=== PATIENT | female | born 2000 | race Two or more races ===

== ENCOUNTER 2022-11-13 10:20 | Outpatient (CLI) | payer OTHER | END 2022-11-13 10:30 | disposition home or self-care (01) | LOC: PPH VACUNA 10:20 | PROVIDERS: ATTEND Emergency Medicine Pediatric Emergency Medicine | DX: Z23 Encounter for immunization (principal) ==

== ENCOUNTER 2023-02-04 01:58 | Emergency (ER) | payer OTHER ==
[~2023-02-04] VITALS: Ht 157.5 cm; Wt 72.6 kg
[2023-02-04] MEDS ORDERED: OMEPRAZOLE MAGN20 MG PO (02:22)
[2023-02-04] MEDS ORDERED: LEVSIN/SL0.125 MG SL (02:22)
[2023-02-04 06:47] LABS: HEMATOCRIT 40.9 % (36.0-45.00); HEMOGLOBIN 14.4 g/dL (12.0-15.00); MEAN CELL VOLUME 82.7 fL (80.00-100.00); MEAN CORPUSCULAR HGB CONC 35.1 g/dl (32.0-36.0); PLATELET COUNT 336 K/uL (150-450); RED BLOOD COUNT 4.95 M/uL (4.00-6.00); RED CELL DISTRIBUTION WIDTH 13.2 % (11.5-14.5)
[2023-02-04 06:56] LABS: ALBUMIN 4.2 gm/dL (3.4-5.0); ALKALINE PHOSPHATASE 99 U/L (50-136); ALT/SGPT 16 U/L (12-78); AMYLASE 55 U/L (25-115); AST/SGOT 11 U/L (15-37); BILIRUBIN TOTAL 0.31 mg/dL (0.3-1.2); BILIRUBIN,CONJUGATED 0.11 mg/dL (0.0-0.2); LIPASE 34 U/L (13-75); TOTAL PROTEIN 8.4 gm/dL (6.4-8.2)
[2023-02-04 07:00] LABS: HCG QUANTITATIVE < 1 mUI/mL (1-3)
[2023-02-04 07:30] LABS: URINE APPEARANCE Cloudy; URINE BILIRRUBIN Negative (NEGATIVE); URINE COLOR Yellow; URINE GLUCOSE Negative (NEGATIVE); URINE LEUKOCYTE Trace; URINE NITRATE Negative; URINE PROTEIN Negative (NEGATIVE)
[2023-02-04 07:35] LABS: URINE BACTERIA 2667.2 uL (0.0-1933); URINE EPITHELIAL CELLS 84.2 uL (0.0-38.8); URINE RBC 24.8 uL (0.0-20.8); URINE WBC 24.7 uL (0.0-23.2)
[2023-02-04 08:01] LABS: URINE BLOOD TRACES
== END 2023-02-04 09:22 | disposition home or self-care (01) ==
LOC: ER 01:59
PROVIDERS: General Practice
DX: R10.13 Epigastric pain (principal); Z91.018 Allergy to other foods; Z91.048 Other nonmedicinal substance allergy status

== ENCOUNTER 2023-03-04 11:13 | Outpatient (CLI) | payer OTHER ==
[~2023-03-04 11:13] MED LIST: LEVSIN/SL0.125 MG SL; OMEPRAZOLE MAGN20 MG PO
== END 2023-03-04 11:14 | disposition home or self-care (01) ==
LOC: NUCLEAR 11:13
DX: G24.9 Dystonia, unspecified (principal)

== ENCOUNTER 2023-05-24 12:33 | Outpatient (CLI) | payer OTHER ==
[2023-05-24 13:09] LABS: PH,URINE 6.5 (5.0-8.0); URINE APPEARANCE Cloudy; URINE BILIRRUBIN Negative (NEGATIVE); URINE BLOOD NHT; URINE COLOR Yellow; URINE GLUCOSE Negative (NEGATIVE); URINE LEUKOCYTE Small; URINE NITRATE Negative; URINE PROTEIN Negative (NEGATIVE); URINE UROBILINOGEN 0.2 E.U./dl
[2023-05-24 13:13] LABS: URINE BACTERIA 4878.5 uL (0.0-1933); URINE RBC 31.4 uL (0.0-20.8); URINE WBC 73.2 uL (0.0-23.2)
[2023-05-24 13:21] LABS: HEMATOCRIT 39.2 % (36.0-45.00); HEMOGLOBIN 13.6 g/dL (12.0-15.00); MEAN CELL VOLUME 82.1 fL (80.00-100.00); MEAN CORPUSCULAR HEMOGLOBIN 28.4 pg (27.00-32.0); MEAN CORPUSCULAR HGB CONC 34.6 g/dl (32.0-36.0); PLATELET COUNT 334 K/uL (150-450); RED BLOOD COUNT 4.78 M/uL (4.00-6.00); RED CELL DISTRIBUTION WIDTH 13.1 % (11.5-14.5)
[2023-05-24 13:39] LABS: ALBUMIN 4.1 gm/dL (3.4-5.0); BILIRUBIN TOTAL 0.46 mg/dL (0.3-1.2); CALCIUM 9.1 mg/dL (8.5-10.1); CREATININE SERUM 0.57 mg/dL (0.55-1.02); GFR 131.44; GLOBULINA 3.9 G/DL (2.4-3.5); POTASSIUM 4.54 mEq/L (3.5-5.1)
[2023-05-24 13:49] LABS: T4 TOTAL 7.9 UG/DL (4.8-13.9); TSH 1.22 uIU/mL (0.358-3.74)
== END 2023-05-24 15:14 | disposition home or self-care (01) ==
LOC: LAB 12:33
PROVIDERS: ATTEND Emergency Medicine
DX: E87.5 Hyperkalemia (principal); E03.9 Hypothyroidism, unspecified; N39.0 Urinary tract infection, site not specified; K92.1 Melena

== ENCOUNTER 2023-11-08 15:37 | Outpatient (CLI) | payer OTHER | END 2023-11-08 15:40 | disposition home or self-care (01) | LOC: LAB 15:37 | DX: A64 Unspecified sexually transmitted disease (principal) ==

== ENCOUNTER 2023-11-29 10:40 | Outpatient (CLI) | payer OTHER | END 2023-11-29 10:50 | disposition home or self-care (01) | LOC: SONOGRAMA 10:40 | PROVIDERS: ATTEND Radiology Diagnostic Radiology | DX: R10.9 Unspecified abdominal pain (principal) ==

== ENCOUNTER 2023-12-10 02:00 | Outpatient (CLI) | payer OTHER | END 2023-12-10 03:00 | disposition home or self-care (01) | LOC: PPH VACUNA 02:00 | PROVIDERS: ATTEND Emergency Medicine Pediatric Emergency Medicine | DX: Z23 Encounter for immunization (principal) ==

== ENCOUNTER 2024-02-07 14:01 | Emergency (ER) | payer OTHER ==
[~2024-02-07] VITALS: Ht 175.3 cm; Wt 74.8 kg
[2024-02-07] MEDS ORDERED: BUTALB/ACETAMINOPHEN/CAFFEINE 1 TAB TABLET PO ONE (15:01)
[2024-02-07] MEDS ORDERED: FAMOTIDINE/PF 20 MG/2 ML VIAL ONE (15:02)
[2024-02-07 15:45] LABS: HEMATOCRIT 40.9 % (36.0-45.00); MEAN CELL VOLUME 83.5 fL (80.00-100.00); MEAN CORPUSCULAR HEMOGLOBIN 28.5 pg (27.00-32.0); MEAN CORPUSCULAR HGB CONC 34.1 g/dl (32.0-36.0); PLATELET COUNT 328 K/uL (150-450); RED CELL DISTRIBUTION WIDTH 13.2 % (11.5-14.5)
== END 2024-02-07 17:38 | disposition home or self-care (01) ==
LOC: ER 14:01
PROVIDERS: General Practice
DX: R51.9 Headache, unspecified (principal); Z20.822 Contact with and (suspected) exposure to COVID-19; Z91.040 Latex allergy status; Z91.018 Allergy to other foods

== ENCOUNTER 2024-04-28 14:04 | Outpatient (CLI) | payer OTHER | END 2024-04-28 14:11 | disposition home or self-care (01) | LOC: SONOGRAMA 14:04 | PROVIDERS: ATTEND Obstetrics & Gynecology Maternal & Fetal Medicine | DX: R10.2 Pelvic and perineal pain (principal) ==

== ENCOUNTER 2024-08-30 09:19 | Outpatient (CLI) | payer OTHER ==
[2024-08-30 12:18] LABS: BASO % 1.2 % (0.1-1.2); EOS # 0.14 (0.04-0.54); EOS % 2.1 % (0.7-7.0); LYMPH # 1.71 (1.18-3.74); LYMPH % 25.1 % (19.3-53.1); MEAN PLATELET VOLUME 11.40 fl (9.4-12.4); MONO # 0.43 (0.24-0.82); MONO % 6.3 % (4.7-12.5); NEUT # 4.43 (1.56-6.13); NEUT % 65.2 % (34.0-71.1); RED CELL DISTRIBUTION WIDTH 12.3 % (11.6-14.4)
[2024-08-30 12:27] LABS: URINE APPEARANCE Clear; URINE BILIRRUBIN Negative (NEGATIVE); URINE BLOOD Trace; URINE COLOR Yellow; URINE GLUCOSE Negative (NEGATIVE); URINE KETONE Negative (NEGATIVE); URINE LEUKOCYTE Small; URINE NITRATE Negative; URINE PROTEIN Negative (NEGATIVE); URINE UROBILINOGEN 1.0 E.U./dl
[2024-08-30 12:31] LABS: URINE BACTERIA 1290.0 uL (0.0-1933); URINE EPITHELIAL CELLS 50.4 uL (0.0-38.8); URINE RBC 49.7 uL (0.0-20.8); URINE WBC 49.2 uL (0.0-23.2)
[2024-08-30 12:41] LABS: URINE CAST 0.14 uL (0.0-1.40)
[2024-08-30 12:53] LABS: ALT/SGPT 17.0 U/L (12-78); AST/SGOT 9.0 U/L (15-37); BILIRUBIN TOTAL 0.53 mg/dL (0.3-1.2); BUN CREA RATIO 18.0 (7.0-25.0); CHOL HDL RATIO 2.2 (0-5.0); CREATININE SERUM 0.62 mg/dL (0.55-1.02); GFR 118.26; GLOBULINA 3.9 G/DL (2.4-3.5); GLUCOSE FASTING 87.0 mg/dL (65-100); HDL 67.0 mg/dl (40-60); LDL 74.0 mg/dl (0-130); OSMOLALITY SERUM 284.0 MOSM/KG (275-295); TSH 1.4 uIU/mL (0.358-3.74); VLDL 8.0 (0-39)
== END 2024-08-30 09:23 | disposition home or self-care (01) ==
LOC: SONOGRAMA 09:19 → LAB 09:19 → SONOGRAMA 09:23
PROVIDERS: ATTEND Obstetrics & Gynecology
DX: N63.0 Unspecified lump in unspecified breast (principal)

== ENCOUNTER 2024-11-21 08:23 | Outpatient (CLI) | payer OTHER | END 2024-11-21 08:26 | disposition home or self-care (01) | LOC: MAMO-SONO 08:23 | PROVIDERS: ATTEND Specialist | DX: R92.8 Other abnormal and inconclusive findings on diagnostic imaging of breast (principal) ==

== ENCOUNTER 2024-12-21 09:19 | Outpatient (CLI) | payer OTHER ==
[2024-12-21 11:06] LABS: ALT/SGPT 25.0 U/L (12-78); AST/SGOT 13.0 U/L (15-37); BILIRUBIN TOTAL 0.5 mg/dL (0.3-1.2); BUN CREA RATIO 20.0 (7.0-25.0); CREATININE SERUM 0.61 mg/dL (0.55-1.02); GFR 119.5; GLOBULINA 4.1 G/DL (2.4-3.5); GLUCOSE FASTING 94.0 mg/dL (65-100); OSMOLALITY SERUM 283.0 MOSM/KG (275-295)
== END 2024-12-21 13:37 | disposition home or self-care (01) ==
LOC: LAB 09:19
PROVIDERS: ATTEND Specialist
DX: R92.2 Inconclusive mammogram (principal)

== ENCOUNTER 2024-12-21 11:00 | Outpatient (CLI) | payer OTHER | END 2024-12-21 11:10 | disposition home or self-care (01) | LOC: PPH VACUNA 11:00 | PROVIDERS: ATTEND Emergency Medicine Pediatric Emergency Medicine | DX: Z23 Encounter for immunization (principal) ==

== ENCOUNTER 2025-01-02 09:45 | Outpatient (CLI) | payer OTHER | END 2025-01-02 09:54 | disposition home or self-care (01) | LOC: RAD 09:45 | DX: M54.2 Cervicalgia (principal); R51.9 Headache, unspecified ==